=== PATIENT | male | born 1975 | race Caucasian/White ===

== ENCOUNTER 2016-07-15 21:12 | Inpatient (IN) | payer SELFPAY ==
--- NOTE | ~2016-07-15 | CN ---
Consultation Report [facility] [address] [place]. [address] NAME: CARSON AMOR : 77 STATUS : ADM IN PAT#: [id number] AGE: 40 ADM/REG DATE : 07/15/16 MR#: [id number] REPORT SERV DATE: 07/17/16 DICTATED BY: SUNNY FREDERICK DATE: 07/17/16 REPORT STATUS : Draft TRANSCRIBED BY: MODL DATE: 07/17/16 PSYCHIATRIC CONSULTATION DATE OF CONSULTATION: 07/17/2016 I discussed patient's status with Dr. Long. I discussed his status with his nurse. HISTORY OF PRESENT ILLNESS: He was admitted after overdosing on a number of different medications. The patient said he remembered he had gotten into an argument with his father and he just wanted to go to sleep for a while. He strongly and consistently denied any suicidal intent. PAST PSYCHIATRIC HISTORY: He reports a polysubstance abuse and dependence since the age of 13. Recently, he enrolled in the [facility] and he thinks he was being prescribed 90 mg per day of methadone. At this time, he does not want to return to that clinic. He wants to remain abstinent from all substances of abuse. He also reports a lifelong tendency toward mood swings. He said he has periods of high energy and enthusiasm and also has periods of motivation less depression. He has periods of severe insomnia and periods of hypersomnia. SOCIAL HISTORY: He is single. He never . He recently got employed by the [employer]. He lives with his father. FAMILY HISTORY: A maternal aunt has bipolar disorder. He said that this aunt told him that he also has the same condition. MENTAL STATUS: He was very pleasant and cooperative in attitude. He does not have any current suicidal intention or plan. His mood is dysphoric. He was very remorseful for his overdose. His affect was appropriate. His thinking was logical. He had no delusions. He had no hallucinations. He was oriented to time, place, and person. DIAGNOSES: 1. Polysubstance dependence. 2. Bipolar disorder, not otherwise specified. RECOMMENDATIONS: We can discontinue suicide precautions since he is no longer suicidal. He can be discharged to home. He agrees to follow up with a local mental health clinic. I gave him the name of [facility]. We discussed his return to [facility]. He was reluctant to do this since he said he never got any value out of attendance at these groups in the past and he only got more contacts for continuing with substance abuse. I have attempted to get in touch with family members without success. We do not have any current telephone number for the family. Consultation Report [facility] [address] [place]. [address] NAME: CARSON AMOR : 77 STATUS : ADM IN [facility]#: [id number] AGE: 40 ADM/REG DATE : 07/15/16 MR#: [id number] REPORT SERV DATE: 07/17/16 DICTATED BY: SUNNY FREDERICK DATE: 07/17/16 REPORT STATUS : Draft TRANSCRIBED BY: LINDA DATE: 07/17/16 JANI/LINDA Sunny Frederick M.D. / [id number] CC: Trace Adair MD
[~2016-07-15 21:12] MED LIST: *UNABLE2; ATARAX50B PO
[2016-07-16 04:11] LABS: BASOPHILS 0.2 %; BASOPHILS ABSOLUTE 0.02 10/3/uL (0.0-0.16); EOSINOPHILS 0.2 %; EOSINOPHILS ABSOLUTE 0.02 10/3/uL (0.0-0.53); HEMATOCRIT 42.7 % (40.0-51.0); HEMOGLOBIN 14.5 g/dL (13.6-17.8); IMMATURE GRANULOCYTES 0.2 %; IMMATURE GRANULOCYTES ABSOLUTE 0.03 10/3/uL (0.0-0.11); LYMPHOCYTES 16.2 %; LYMPHOCYTES ABSOLUTE 1.96 10/3/uL (0.67-4.30); MEAN CORPUSCULAR HEMOGLOB 30.7 pg (26.0-34.0); MEAN CORPUSCULAR VOLUME 90.5 fL (80-100); MONOCYTES 8.5 %; MONOCYTES ABSOLUTE 1.03 10/3/uL (0.21-1.20); NEUTROPHILS 74.7 %; NEUTROPHILS ABSOLUTE 9.03 10/3/uL (2.02-8.40); PLATELET COUNT 190 10/3/uL (150-400); RBC DISTRIBUTION WIDTH 13.8 % (12.0-16.0); RED CELL COUNT 4.72 10/6/uL (4.7-6.1); WHITE BLOOD CELLS 12.1 10/3/uL (4.5-10.5)
[2016-07-16 04:16] LABS: BUN (BLOOD UREA NITROGEN) 8 MG/DL (6-23); CALCIUM, SERUM 8.3 MG/DL (8.5-10.4); CHLORIDE, SERUM 114 MMOL/L (96-112); CO2 (CARBON DIOXIDE) 23 MMOL/L (24-34); CREATININE 0.67 MG/DL (0.70-1.30); GFR AFRICAN AMERICAN 140 ML/MIN (>=60); GFR NON AFRICAN AMERICAN 121 ML/MIN (>=60); GLUCOSE, SERUM 132 MG/DL (60-99); PHOSPHORUS, SERUM 2.7 MG/DL (2.5-4.5); POTASSIUM, SERUM 4.3 MMOL/L (3.5-5.3); SODIUM, SERUM 146 MMOL/L (135-148)
[2016-07-16 04:19] LABS: MANUAL DIFF NO %
[2016-07-16 06:23] LABS: PROCALCITONIN <0.05 ng/mL (<0.5)
[2016-07-16 06:42] LABS: ASCORBIC ACID (UR NOT ORDER) NEG (NEG); BILIRUBIN, URINE NEGATIVE (NEG); KETONE, URINE 20 MG/DL (NEG); LEUKOCYTE ESTERASE(NOT OR NEG (NEG); WBC (NOT ORDERED) (RFLEX) < 1 (0-5)
[2016-07-16 19:22] LABS: ALLENS TEST Pos; BE (BASE EXCESS) -1.3 MEQ/L (0 +/- 2.5); CARBOXYHEMOGLOBIN 0.4 % (0-3); DEVICE VM; HCO3 (ACTUAL BICARBONATE) 22.2 MEQ/L (23-27); INSTRUMENT SERIAL # 35151; METHEMOGLOBIN 0.6 % (0-3); OPERATOR ID 17370; PCO2 (CO2 TENSION) 34 MMHG (35-45); PO2 (O2 TENSION) 60 MMHG (79-93); SAMPLE Arterial; pH 7.44 (7.37-7.43)
[2016-07-17 08:26] LABS: BASOPHILS 0.2 %; BASOPHILS ABSOLUTE 0.02 10/3/uL (0.0-0.16); EOSINOPHILS 0.1 %; EOSINOPHILS ABSOLUTE 0.01 10/3/uL (0.0-0.53); HEMATOCRIT 41.4 % (40.0-51.0); HEMOGLOBIN 14.5 g/dL (13.6-17.8); IMMATURE GRANULOCYTES 0.2 %; IMMATURE GRANULOCYTES ABSOLUTE 0.02 10/3/uL (0.0-0.11); LYMPHOCYTES 19.8 %; LYMPHOCYTES ABSOLUTE 1.77 10/3/uL (0.67-4.30); MEAN CORPUSCULAR HEMOGLOB 31.3 pg (26.0-34.0); MEAN CORPUSCULAR VOLUME 89.2 fL (80-100); MEAN PLATELET VOLUME 11.4 fL (9.2-13.0); MONOCYTES 6.4 %; MONOCYTES ABSOLUTE 0.57 10/3/uL (0.21-1.20); NEUTROPHILS 73.3 %; NEUTROPHILS ABSOLUTE 6.54 10/3/uL (2.02-8.40); PLATELET COUNT 184 10/3/uL (150-400); RBC DISTRIBUTION WIDTH 14.3 % (12.0-16.0); RED CELL COUNT 4.64 10/6/uL (4.7-6.1); WHITE BLOOD CELLS 8.9 10/3/uL (4.5-10.5)
[2016-07-17 08:29] LABS: MANUAL DIFF NO %
[2016-07-17 08:39] LABS: BUN (BLOOD UREA NITROGEN) 11 MG/DL (6-23); CALCIUM, SERUM 8.7 MG/DL (8.5-10.4); CHLORIDE, SERUM 109 MMOL/L (96-112); CO2 (CARBON DIOXIDE) 25 MMOL/L (24-34); CREATININE 0.72 MG/DL (0.70-1.30); GFR AFRICAN AMERICAN 136 ML/MIN (>=60); GFR NON AFRICAN AMERICAN 118 ML/MIN (>=60); GLUCOSE, SERUM 116 MG/DL (60-99); PHOSPHORUS, SERUM 2.7 MG/DL (2.5-4.5); POTASSIUM, SERUM 3.8 MMOL/L (3.5-5.3); SODIUM, SERUM 142 MMOL/L (135-148)
[2016-07-17] MEDS ORDERED: CENTRUM PO (11:33)
[2016-07-17] MEDS ORDERED: TEARS PURE OPH (11:33)
[2016-07-17] MEDS ORDERED: METHADONE PO (11:35)
[2016-07-17] MEDS ORDERED: MUSCLE RELAXER PO (11:35)
[2016-07-24] MEDS ORDERED: *UNABLE2 (21:20)
== END 2016-07-17 18:27 | disposition home or self-care (01) | DRG 918 ==
LOC: CCU 21:12
PROVIDERS: Internal Medicine
DX: T40.3X1A Poisoning by methadone, accidental (unintentional), initial encounter (principal); F31.9 Bipolar disorder, unspecified; F15.19 Other stimulant abuse with unspecified stimulant-induced disorder; F10.10 Alcohol abuse, uncomplicated
CPT/HCPCS: 80048; 81001; 82330; 82805; 83735; 84100; 84145; 85025; 87641; 94640; A9270-GY; C9113; J1630; J3486